=== PATIENT | female | born 1980 | race Caucasian/White ===

== ENCOUNTER 2017-01-24 11:45 | Emergency (ER) | payer BC, OTHER ==
[~2017-01-24] VITALS: Ht 165.1 cm; Wt 72.8 kg
[~2017-01-24 11:45] MED LIST: CHOL100027 PO; MULT1CHW18 PO; SERT50TA PO
[2017-01-24 11:47] VITALS: TEMP 36.9; Ht 165.1 cm; Wt 72.8 kg
[2017-01-24] MEDS ORDERED: MoRPHine SULFATE 4 MG/ML 1 ML CARP\\VIAL IV STA ×2 (12:01→13:49)
[2017-01-24] MEDS ORDERED: ONDANSETRON INJ 2 MG/ML 2 ML VIAL IV STA ×2 (12:01→13:49)
[2017-01-24] MEDS ORDERED: SODIUM CHLORIDE 0.9% 1000ML 1,000 ML IV ONE (12:15)
--- NOTE | 2017-01-24 12:27 | EMERGENCY ROOM VISIT NOTE ---
History Report prepared by Irvin: Clair Pizano Under the Supervision of: Dr. Marques Guo M.D. First contact with patient: 11:54 Chief Complaint: ABDOMINAL PAIN Stated Complaint: ABD PAIN History of Present Illness The patient is a 36 year old female who presents to the Emergency Room with complaints of worsening right-sided abdominal pain beginning yesterday. Her pain began yesterday morning and gradually worsened. She states that her pain is worse in her RLQ and radiates across her abdomen. She rates her pain as a 9/ 10 in severity. The patient also reports chills, nausea, vomiting, and diarrhea. She estimates that she has had about 5 episodes of vomiting today. She has some relief of her pain after she vomits. The patient has dysuria. She has not looked to see if she has had any hematuria. She notes a history of UTI. She has not taken any medications for her symptoms today. The patient was evaluated by her PCP for these symptoms and sent to the ED for further evaluation and to rule out appendicitis. The patient denies cough and fever. She denies any recent prolonged travel, recent antibiotic usage, recent trauma or falls, and any sick contacts. She has not eaten anything unusual in the past couple of days. She does not have a history of any abdominal surgeries. Her menstrual period started a few days ago. She denies any personal history of cysts or fibroids. Source of History: patient, parent Onset: yesterday Position: abdomen (RLQ) Symptom Intensity: 9/10 Quality: other (radiates) Timing: worsening Modifying Factors (Relieving): other (vomiting) Associated Symptoms: + chills, + nausea, + vomiting, + diarrhea, + urinary symptoms (dysuria), No fevers, No cough Review of Systems See HPI for pertinent positives and negatives. A total of ten systems were reviewed and were otherwise negative. Past Medical & Surgical Medical Problems: (1) Depression Family History FH: cancer FH: heart disease Hypertension Social History Smoking Status: Never Smoker Smokeless Tobacco Use: No Alcohol Use: none Drug Use: none Marital Status: in relationship Housing Status: lives with family Occupation Status: employed Current/Historical Medications Scheduled Cephalexin Monohydrate (Keflex), 500 MG PO BID Cholecalciferol (Vitamin D 1000 Unit), 1,000 INTER.UNIT PO DAILY Multiple Vitamins W/ Minerals (Multivitamin Gummies Adul), 2 CHW PO DAILY Ondasetron Odt (Zofran Odt), 4 MG SL Q6H Sertraline Hcl (Zoloft), 25 MG PO DAILY Miscellaneous Medications Calcium Carbonate-Cholecalcife (Calcium Chews) Norgestimate-Ethinyl Estradiol (Nlj-Ab-Czdjgyykq 0.18/0.215/0.25 mg-25 Mcg) Vit W/ Ferrous Fumara (One A Day Womens 28-0.8 & 223 mg) Psyllium (Fiber) Allergies Coded Allergies: No Known Allergies (Unverified , 01/24/17) Physical Exam Vital Signs Date Time Temp Pulse Resp B/P (MAP) Pulse Ox O2 Delivery O2 Flow Rate FiO2 01/24/17 15:03 78 16 135/93 99 Room Air 01/24/17 13:41 78 18 145/88 99 Room Air 01/24/17 11:47 36.9 93 18 145/96 97 Room Air Physical Exam GENERAL: Awake, alert, well-appearing, in no distress HENT: Normocephalic, atraumatic. EYES: Normal conjunctiva. Sclera non-icteric. NECK: Supple. No nuchal rigidity. RESPIRATORY: Clear to auscultation. CARDIAC: Regular rate, normal rhythm. ABDOMEN: Soft, non-distended. Mild RLQ and suprapubic pain. Negative Laura's sign and Rovsing's. Positive obturator, positive psoas. No rebound or guarding. No masses. MUSCULOSKELETAL: Chest examination reveals no tenderness. The back is symmetrical on inspection without obvious abnormality. There is no CVA tenderness to palpation. LOWER EXTREMITIES: Calves are equal size bilaterally and non-tender. No edema. No discoloration. NEURO: Normal sensorium. No sensory or motor deficits noted. SKIN: No rash or jaundice noted. Medical Decision & Procedures ER Provider Diagnostic Interpretation: Radiology results as stated below per my review and radiologist interpretation: APPENDIX ULTRASOUND HISTORY: r/o appy, RLQ, suprapubic pain COMPARISON: None. FINDINGS: Transabdominal scanning of the right lower quadrant was performed. The appendix was not identified. There are no fluid collections or masses within the right lower quadrant. IMPRESSION: The appendix was not identified. Electronically signed by: Francis Richey M.D. 01/24/2017 1:01 PM Dictated Date/Time: 01/24/2017 1:[address] SCAN OF THE ABDOMEN AND PELVIS WITH IV CONTRAST CLINICAL HISTORY: Right lower quadrant abdominal pain. COMPARISON STUDY: Abdominal CT dated 03/25/2013 TECHNIQUE: Following the IV administration of 120 cc of Optiray 320, CT scan of the abdomen and pelvis is performed from the lung bases to the proximal femora. Images are reviewed in the axial, sagittal, and coronal planes. IV contrast was administered without complication. Automated dose control exposure was utilized. A dose lowering technique was utilized adhering to the principles of ALARA. CT DOSE: 366.72 mGy.cm FINDINGS: Lung bases: The heart is normal in size and without pericardial effusion. The lung bases are clear noting dependent atelectasis. There is a tiny hiatal hernia. Liver: The contrast-enhanced liver is enlarged, measuring 22.6 cm in length. The liver is otherwise normal in contour and attenuation. There is no intrahepatic biliary ductal dilatation. The hepatic veins and portal veins are patent. Gallbladder: Unremarkable. Spleen: The spleen is enlarged measuring 13.9 cm in length. Pancreas: Unremarkable. Adrenal glands: Unremarkable. Kidneys: The contrast enhanced kidneys are normal in size and without hydronephrosis. The kidneys enhance symmetrically. Abdominal vasculature: The abdominal aorta is normal in course and caliber. Bowel: The small bowel and colon are normal in course and caliber. The appendix is normal as visualized. Peritoneum: There is no intraperitoneal free air or abdominal ascites. There is a fat-containing umbilical hernia. Lymphadenopathy: None. Pelvic viscera: Although decompressed depressed, the bladder wall appears thickened and hyperemic. Mild pericystic stranding is suggested. Uterine fibroids are suggested. No adnexal lesion is seen. Bilateral ovarian follicles are observed. Skeletal structures: No lytic or blastic lesions are seen. Mild sclerotic change is noted in the sacroiliac joints. IMPRESSION: 1. Findings suggest cystitis. Correlation with clinical findings and urinalysis will be required. 2. No additional infectious or inflammatory findings are suggested in the abdomen or pelvis. 3. Fibroid uterus. 4. Hepatosplenomegaly. Electronically signed by: Manuel Dorsey M.D. 01/24/2017 3:36 PM Dictated Date/Time: 01/24/2017 3:30 PM Laboratory Results 01/24/17 12:20 Red Blood Count 5.39, Mean Corpuscular Volume 82.0, Mean Corpuscular Hemoglobin 26.9, Mean Corpuscular Hemoglobin Concent 32.8, Mean Platelet Volume 12.2, Neutrophils (%) (Auto) 71.3, Lymphocytes (%) (Auto) 24.3, Monocytes (%) (Auto) 3.5, Eosinophils (%) (Auto) 0.5, Basophils (%) (Auto) 0.2, Neutrophils # (Auto) 7.40, Lymphocytes # (Auto) 2.52, Monocytes # (Auto) 0.36, Eosinophils # (Auto) 0.05, Basophils # (Auto) 0.02 01/24/17 12:20 Test 01/24/17 12:20 White Blood Count 10.37 K/uL (4.8-10.8) Red Blood Count 5.39 M/uL (4.2-5.4) Hemoglobin 14.5 g/dL (12.0-16.0) Hematocrit 44.2 % (37-47) Mean Corpuscular Volume 82.0 fL (80-100) Mean Corpuscular Hemoglobin 26.9 pg (25-34) Mean Corpuscular Hemoglobin Concent 32.8 g/dl (32-36) Platelet Count 277 K/uL (130-400) Mean Platelet Volume 12.2 fL (7.4-10.4) Neutrophils (%) (Auto) 71.3 % Lymphocytes (%) (Auto) 24.3 % Monocytes (%) (Auto) 3.5 % Eosinophils (%) (Auto) 0.5 % Basophils (%) (Auto) 0.2 % Neutrophils # (Auto) 7.40 K/uL (1.4-6.5) Lymphocytes # (Auto) 2.52 K/uL (1.2-3.4) Monocytes # (Auto) 0.36 K/uL (0.11-0.59) Eosinophils # (Auto) 0.05 K/uL (0-0.5) Basophils # (Auto) 0.02 K/uL (0-0.2) RDW Standard Deviation 41.7 fL (36.4-46.3) RDW Coefficient of Variation 13.9 % (11.5-14.5) Immature Granulocyte % (Auto) 0.2 % Immature Granulocyte # (Auto) 0.02 K/uL (0.00-0.02) Urine Color DK YELLOW Urine Appearance CLOUDY (CLEAR) Urine pH 6.5 (4.5-7.5) Urine Specific [place] 1.025 (1.000-1.030) Urine Protein NEG (NEG) Urine Glucose (UA) NEG (NEG) Urine Ketones NEG (NEG) Urine Occult Blood 2+ (NEG) Urine Nitrite NEG (NEG) Urine Bilirubin NEG (NEG) Urine Urobilinogen NEG (NEG) Urine Leukocyte Esterase LARGE (NEG) Urine WBC (Auto) 10-30 /hpf (0-5) Urine RBC (Auto) 5-10 /hpf (0-4) Urine Hyaline Casts (Auto) 10-30 /lpf (0-5) Urine Epithelial Cells (Auto) >30 /lpf (0-5) Urine Bacteria (Auto) 2+ (NEG) Urine Pathogenic Casts 0-3 GRANULAR CASTS /lpf (0) Urine Mucus PRESENT (NONE PRSENT) Urine Yeast (Auto) BUD W/ HYPHAE (NONE PRSENT) Urine Test NEG (NEG) Anion Gap 7.0 mmol/L (3-11) Est Creatinine Clear Calc Drug Dose 104.3 ml/min Estimated GFR () 118.6 Estimated GFR (Non- 102.3 BUN/Creatinine Ratio 10.9 (10-20) Lactic Acid Level 1.1 mmol/L (0.4-2.0) Calcium Level 8.9 mg/dl (8.5-10.1) Total Bilirubin 0.3 mg/dl (0.2-1) Aspartate Amino Transf (AST/SGOT) 12 U/L (15-37) Alanine Aminotransferase (ALT/SGPT) 23 U/L (12-78) Alkaline Phosphatase 80 U/L (45-117) Total Protein 8.1 gm/dl (6.4-8.2) Albumin 3.6 gm/dl (3.4-5.0) Globulin 4.5 gm/dl (2.5-4.0) Albumin/Globulin Ratio 0.8 (0.9-2) Lipase 119 U/L (73-393) Laboratory results reviewed by me. Medications Administered Medications (Trade) Dose Ordered Sig/Papi Route Start Time Stop Time Status Last Admin Dose Admin Sodium Chloride 1,000 ml @ 999 mls/hr Q1H1M ONCE IV 01/24/17 12:15 01/24/17 13:15 DC 01/24/17 12:15 999 MLS/HR Morphine Sulfate (MoRPHine SULFATE INJ) 4 mg NOW STAT IV 01/24/17 12:01 01/24/17 12:08 DC 01/24/17 12:01 4 MG Ondansetron HCl (Zofran Inj) 4 mg NOW STAT IV 01/24/17 12:01 01/24/17 12:08 DC 01/24/17 12:01 4 MG Morphine Sulfate (MoRPHine SULFATE INJ) 4 mg NOW STAT IV 01/24/17 13:49 01/24/17 13:52 DC 01/24/17 15:03 4 MG Ondansetron HCl (Zofran Inj) 4 mg NOW STAT IV 01/24/17 13:49 01/24/17 13:52 DC 01/24/17 15:02 4 MG Ceftriaxone Sodium (Rocephin Inj) 1 gm NOW STAT IV 01/24/17 15:44 01/24/17 15:49 DC 01/24/17 16:05 1 GM Fluconazole (Diflucan Tab) 150 mg NOW ONCE PO 01/24/17 16:15 01/24/17 16:16 DC 01/24/17 16:22 150 MG ED Course 1154: The patient was evaluated in room A3. A complete history and physical exam was performed. 1201: Zofran 4 mg IV, Morphine sulfate 4 mg IV 1215: NSS 1000 ml @ 999 mls/hr IV 1345: I updated the patient on the results of her ultrasound. I discussed the risks and benefits associated with a CT scan and the patient verbalized agreement. She is still complaining of pain. 1349: Zofran 4 mg IV, Morphine sulfate 4 mg IV Medical Decision Differential diagnoses includes appendicitis, UTI, pyelonephritis, mesenteric adenitis, gastroenteritis. Patient is a 36-year-old white female past medical problems of depression presents with a chief complaint of abdominal pain with associated nausea and vomiting. Patient is well-appearing was never tachycardic or febrile. Patient' s labs fairly unremarkable and patient's pain and nausea improved without any observed emesis while in the department. Patient's UPT was negative patient's UA was consistent with a possible hemorrhagic cystitis with noted yeast. Patient had an ultrasound was unable to identify the appendix. Patient did have CT of the abdomen and pelvis showed symptoms concerning for cystitis. Patients signs and symptoms along with her urinalysis and CT are consistent with uncomplicated hemorrhagic cystitis. Patient also does have a fibroid noted on her CT scan which is consistent from prior CT completed in 2012. This may also be contributory to her pain and she was advised to follow-up with her [employer] physician. Patient was given Rocephin IV as well as Diflucan by mouth. Patient was given follow-up, discharge instructions, return precautions. All questions were answered, patient was feeling well. Patient was safely discharged home. Impression Primary Impression: Cystitis Scribe Attestation The scribe's documentation has been prepared under my direction and personally reviewed by me in its entirety. I confirm that the note above accurately reflects all work, treatment, procedures, and medical decision making performed by me. Departure Information Dispostion Home / Self-Care Prescriptions Ondasetron Odt (ZOFRAN ODT) 4 Mg Tab 4 MG SL Q6H for Nausea, #6 TAB Prov: Marques Guo M.D. 01/24/17 Cephalexin Monohydrate (Keflex) 500 Mg Cap 500 MG PO BID for 7 Days, #14 CAP Prov: Marques Guo M.D. 01/24/17 Referrals Vincent Hoffmann III, M.D. (PCP) Patient Instructions [facility] Additional Instructions Please continue to take all your medications as prescribed. Please consider taking your antibiotics with yogurt to help avoid diarrhea. Also consider a soft bland diet over the next several days which he can slowly integrate foods that are more normal in your diet. Follow-up with her primary care physician as needed. Please return to the emergency department if you are unable to tolerate her medications at home. Work Instructions Return To Work: 2 days Specific Date: May return to work 01/26/2017 Lifting Limitations: none
[2017-01-24 12:43] LABS: BASO % 0.2 %; BASO ABS # 0.02 K/uL (0-0.2); COMPLETE YES; EOS % 0.5 %; HEMATOCRIT 44.2 % (37-47); IG% 0.2 %; LYMPH % 24.3 %; LYMPH ABS # 2.52 K/uL (1.2-3.4); MEAN CORPUSCULAR HEMOGLOBIN 26.9 pg (25-34); MEAN CORPUSCULAR HGB CONC 32.8 g/dl (32-36); MEAN PLATELET VOLUME 12.2 fL (7.4-10.4); MONO % 3.5 %; NEUT % 71.3 %; PLATELET COUNT 277 K/uL (130-400); RED BLOOD COUNT 5.39 M/uL (4.2-5.4); URINE APPEARANCE CLOUDY (CLEAR); URINE BILIRUBIN NEG (NEG); URINE COLOR DK YELLOW; URINE EPITHELIAL CELL AUTO >30 /lpf (0-5); URINE NITRITE NEG (NEG); URINE PH 6.5 (4.5-7.5); URINE SPECIFIC GRAVITY 1.025 (1.000-1.030); UROBILINOGEN NEG (NEG); WHITE BLOOD COUNT 10.37 K/uL (4.8-10.8); ZZUR CULT IF INDIC CLEAN CATCH YES
[2017-01-24] MEDS ORDERED: OPTIRAY 320 IV PRN (12:45)
[2017-01-24 12:59] LABS: BUN/CREATININE RATIO 10.9 (10-20); CALCIUM 8.9 mg/dl (8.5-10.1); CREATININE 0.76 mg/dl (0.60-1.20); POTASSIUM 3.6 mmol/L (3.5-5.1)
[2017-01-24 13:01] LABS: ALB/GLOB RATIO 0.8 (0.9-2); MANUAL MICROSCOPIC REQUIRED? NO; REVIEW REQ? YES
--- NOTE | 2017-01-24 13:02 | DIAGNOSTIC IMAGING REPORT ---
APPENDIX ULTRASOUND HISTORY: r/o appy, RLQ, suprapubic pain COMPARISON: None. FINDINGS: Transabdominal scanning of the right lower quadrant was performed. The appendix was not identified. There are no fluid collections or masses within the right lower quadrant. IMPRESSION: The appendix was not identified. Electronically signed by: Francis Richey M.D. 01/24/2017 1:01 PM Dictated Date/Time: 01/24/2017 1:01 PM
[2017-01-24 13:22] LABS: URINE MUCUS PRESENT (NONE PRSENT); URINE PATH CASTS 0-3 GRANULAR CASTS /lpf (0)
[2017-01-24] MEDS ORDERED: PREN1MIS44 (13:27)
[2017-01-24] MEDS ORDERED: PSYL1CAP4 (13:27)
[2017-01-24] MEDS ORDERED: NORG1TAB28 (13:27)
[2017-01-24] MEDS ORDERED: CALC1CHW71 (13:27)
--- NOTE | 2017-01-24 15:38 | DIAGNOSTIC IMAGING REPORT ---
CT SCAN OF THE ABDOMEN AND PELVIS WITH IV CONTRAST CLINICAL HISTORY: Right lower quadrant abdominal pain. COMPARISON STUDY: Abdominal CT dated 03/25/2013 TECHNIQUE: Following the IV administration of 120 cc of Optiray 320, CT scan of the abdomen and pelvis is performed from the lung bases to the proximal femora. Images are reviewed in the axial, sagittal, and coronal planes. IV contrast was administered without complication. Automated dose control exposure was utilized. A dose lowering technique was utilized adhering to the principles of ALARA. CT DOSE: 366.72 mGy.cm FINDINGS: Lung bases: The heart is normal in size and without pericardial effusion. The lung bases are clear noting dependent atelectasis. There is a tiny hiatal hernia. Liver: The contrast-enhanced liver is enlarged, measuring 22.6 cm in length. The liver is otherwise normal in contour and attenuation. There is no intrahepatic biliary ductal dilatation. The hepatic veins and portal veins are patent. Gallbladder: Unremarkable. Spleen: The spleen is enlarged measuring 13.9 cm in length. Pancreas: Unremarkable. Adrenal glands: Unremarkable. Kidneys: The contrast enhanced kidneys are normal in size and without hydronephrosis. The kidneys enhance symmetrically. Abdominal vasculature: The abdominal aorta is normal in course and caliber. Bowel: The small bowel and colon are normal in course and caliber. The appendix is normal as visualized. Peritoneum: There is no intraperitoneal free air or abdominal ascites. There is a fat-containing umbilical hernia. Lymphadenopathy: None. Pelvic viscera: Although decompressed depressed, the bladder wall appears thickened and hyperemic. Mild pericystic stranding is suggested. Uterine fibroids are suggested. No adnexal lesion is seen. Bilateral ovarian follicles are observed. Skeletal structures: No lytic or blastic lesions are seen. Mild sclerotic change is noted in the sacroiliac joints. IMPRESSION: 1. Findings suggest cystitis. Correlation with clinical findings and urinalysis will be required. 2. No additional infectious or inflammatory findings are suggested in the abdomen or pelvis. 3. Fibroid uterus. 4. Hepatosplenomegaly. Electronically signed by: Manuel Dorsey M.D. 01/24/2017 3:36 PM Dictated Date/Time: 01/24/2017 3:30 PM
[2017-01-24] MEDS ORDERED: CEFTRIAXONE SOD INJ 1 GM ADDVIAL IV STA (15:44)
[2017-01-24] MEDS ORDERED: ONDA4TAB10 SL (15:54)
[2017-01-24] MEDS ORDERED: CEPH500C PO (15:54)
[2017-01-24] MEDS ORDERED: FLUCONAZOLE 50 MG TAB PO ONE (16:15)
[2017-01-24 16:59] VITALS: BP 138/88; PULSE 79; O2SAT 96
== END 2017-01-24 16:59 | disposition home or self-care (01) ==
LOC: C.EDB 11:47 → C.EDA 16:59
DX: N30.90 Cystitis, unspecified without hematuria (principal); R16.2 Hepatomegaly with splenomegaly, not elsewhere classified; R10.9 Unspecified abdominal pain; F32.9 Major depressive disorder, single episode, unspecified; Z79.899 Other long term (current) drug therapy

== ENCOUNTER → 2017-08-24 | Outpatient (CLI) | payer BC ==
[~2017-08-24] MED LIST changes: +CALC1CHW71; +NORG1TAB28; +PREN1MIS44; +PSYL1CAP4
== END | disposition home or self-care (01) ==
LOC: C.PATHSPEC 10:33
PROVIDERS: ATTEND Plastic Surgery
DX: L82.1 Other seborrheic keratosis (principal)